=== PATIENT | male | born 1940 | race American Indian/Alaskan Native ===

== ENCOUNTER 2018-03-25 19:37 | Inpatient (IN) | payer MEDICARE ==
--- NOTE | 2018-03-25 20:34 | C.PDOC ---
History Of Present Illness 78 year old male presents to the ER with a complaint of lower abdominal pain and constipation, last bowel movement was 10 days ago. Denies nausea or vomiting. Chief Complaint (Nursing): Abdominal Pain History Per: Patient History/Exam Limitations: no limitations Onset/Duration Of Symptoms: Days Current Symptoms Are (Timing): Still Present Location Of Pain/Discomfort: RUQ, LUQ Associated Symptoms: Constipation. denies: Fever, Chills Exacerbating Factors: None Alleviating Factors: None Recent travel outside of the [place]: No Past Medical History Reviewed: Historical Data, Nursing Documentation, Vital Signs Vital Signs: Last Vital Signs Temp 99.2 F 03/25/18 23:01 Pulse 74 03/25/18 23:01 Resp 16 03/25/18 23:01 BP 128/81 03/25/18 23:01 Pulse Ox 96 03/25/18 23:01 - Medical History PMH: Arthritis (osteo), HTN - [facility] COLONOSCOPY (09/20/02) INJECT/INFUSE NEC (01/06/06) Family History: States: Unknown Family Hx - Social History Hx Alcohol Use: No Hx Substance Use: No - Immunization History Hx Tetanus Toxoid Vaccination: No Hx Influenza Vaccination: Yes Hx Pneumococcal Vaccination: Yes Review Of Systems Constitutional: Negative for: Fever, Chills Cardiovascular: Negative for: Chest Pain, Palpitations Respiratory: Negative for: Cough, Shortness of Breath Gastrointestinal: Positive for: Abdominal Pain, Constipation Physical Exam - Physical Exam Appears: Non-toxic Skin: Normal Color, Warm, Dry Head: Atraumatic, Normacephalic Eye(s): bilateral: Normal Inspection Oral Mucosa: Moist Chest: Symmetrical, No Tenderness Cardiovascular: Rhythm Regular Respiratory: Normal Breath Sounds, No Rales, No Rhonchi, No Wheezing Gastrointestinal/Abdominal: Soft, Distention (Slightly), No Guarding, No Rebound Rectal: Other (Stools in the vault) Neurological/Psych: Oriented x3, Normal Speech ED Course And Treatment - Laboratory Results Result Diagrams: 03/26/18 00:52 03/26/18 00:52 O2 Sat by Pulse Oximetry: 95 (Room air) Pulse Ox Interpretation: Normal Progress Note: Fleet enema administered. Disposition Discussed With : Viki Olmedo Doctor Will See Patient In The: Hospital Counseled Patient/Family Regarding: Diagnosis - Disposition Disposition: HOSPITALIZED Disposition Time: 01:25 Condition: STABLE Forms: [facility] (American) - POA Present On Arrival: None - Clinical Impression Clinical Impression: Abdominal pain, Proctitis, Constipation - Scribe Statement The provider has reviewed the documentation as recorded by the Scribrosa Perez All medical record entries made by the Loryibrosa were at my direction and personally dictated by me. I have reviewed the chart and agree that the record accurately reflects my personal performance of the history, physical exam, medical decision making, and the department course for this patient. I have also personally directed, reviewed, and agree with the discharge instructions and disposition.
--- NOTE | 2018-03-25 23:58 | CT ---
EXAM: CT Abdomen and Pelvis Without Intravenous Contrast EXAM DATE/TIME: 03/25/2018 10:04 PM CLINICAL HISTORY: 78 years old, male; Pain and signs and symptoms; Constipation; Abdominal pain; Generalized TECHNIQUE: Axial computed tomography images of the abdomen and pelvis without intravenous contrast. All CT scans at this facility use one or more dose reduction techniques, viz.: automated exposure control; ma/kV adjustment per patient size (including targeted exams where dose is matched to indication; i.e. head); or iterative reconstruction technique. Coronal and sagittal reformatted images were created and reviewed. COMPARISON: Prior CT abdomen and pelvis of 2016-12-10 FINDINGS: LUNG BASES: Again seen in the right lung base are findings suspicious for partial collapse of the right lower lobe. There is a focal area of dense consolidation again seen, associated with mild volume loss. ABDOMEN: LIVER: No acute abnormality of the liver identified. GALLBLADDER AND BILE DUCTS: No CT evidence of acute cholecystitis. No evidence of significant biliary ductal dilatation. PANCREAS: No CT evidence of acute pancreatitis. SPLEEN: No acute abnormality of the spleen identified. ADRENALS: No acute abnormality of the adrenal glands identified. KIDNEYS AND URETERS: Low density lesions in the kidneys bilaterally, most likely representing cysts. Particular note is made of a large, exophytic right renal cyst, which does not appear significantly complex by CT. No evidence of hydroureteronephrosis. STOMACH AND BOWEL: Rectum is stool-filled and is moderately dilated. Its wall is thickened. There is a small amount of nearby free fluid, in the presacral region. Findings are highly suspicious for stercoral proctitis. The remainder of the colon is filled with stool and air, but there is no evidence of a diffuse colonic obstruction. Otherwise, no significant abnormality of the bowel is identified. No acute abnormality of the stomach or duodenum identified. No evidence of a high grade small bowel obstruction. PELVIS: APPENDIX: Normal appendix is not seen, however, there are no significant inflammatory changes visualized in the expected location of the appendix to suggest appendicitis. Recommend clinical correlation. BLADDER: No acute abnormality of the bladder identified. REPRODUCTIVE: Enlarged prostate gland, which indents the base of the bladder. ABDOMEN and PELVIS: INTRAPERITONEAL SPACE: No evidence of free air. No significant free fluid. BONES/JOINTS: No acute fractures or other acute bony abnormality noted. SOFT TISSUES: No acute abnormality of the visualized soft tissues is seen. VASCULATURE: No evidence of abdominal aortic aneurysm. No evidence of periaortic hemorrhage. LYMPH NODES: No evidence of diffuse lymphadenopathy. IMPRESSION: - Findings highly suspicious for stercoral proctitis. - Otherwise, no evidence of significant acute process. 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 - See above for remaining findings.
[2018-03-26 00:47] LABS: SQUAMOUS EPITHIAL 1 /hpf (0-5); URINE BILIRUBIN NEGATIVE (NEGATIVE); URINE BLOOD 1+ (NEGATIVE); URINE CLARITY Clear (Clear); URINE COLOR Yellow (YELLOW); URINE GLUCOSE (UA) NORMAL (Normal); URINE HYALINE CAST 0-2 /lpf (0-2); URINE LEUKOCYTE ESTERASE NEG Leu/uL (Negative); URINE PROTEIN NEGATIVE (NEGATIVE)
[2018-03-26 00:55] LABS: BASO # 0.1 K/uL (0.0-0.2); BASO % 0.9 % (0.0-2.0); EOS # 0.2 K/uL (0.0-0.7); HEMOGLOBIN 15.5 g/dL (12.0-18.0); LYMPH # 1.6 K/uL (1.0-4.3); LYMPH % 20.9 % (20.0-40.0); MEAN CELL VOLUME 88.2 fL (80.0-94.0); MEAN CORPUSCULAR HEMOGLOBIN 30.3 pg (27.0-31.0); MEAN CORPUSCULAR HGB CONC 34.3 g/dL (33.0-37.0); MEAN PLATELET VOLUME 7.9 fL (7.2-11.7); MONO # 0.6 K/uL (0.0-0.8); MONO % 7.6 % (0.0-10.0); NEUT # 5.3 K/uL (1.8-7.0); NEUT % 68.6 % (50.0-75.0); RBC 5.11 Mil/uL (4.40-5.90); WHITE BLOOD COUNT 7.7 K/uL (4.8-10.8)
[2018-03-26 01:08] LABS: ALBUMIN 4.3 g/dL (3.5-5.0); ALT/SGPT 45 U/L (21-72); AST/SGOT 43 U/L (17-59); BLOOD UREA NITROGEN 15 mg/dL (9-20); CALCIUM 9.9 mg/dl (8.6-10.4); GFR AFRICAN-AMERICAN > 60; GFR NON-AFRICAN AMERICAN > 60; LIPASE 184 U/L (23-300)
[2018-03-26] MEDS ORDERED: Sodium Chloride 0.9% 1,000 ML IV ONE (01:17)
[2018-03-26] MEDS ORDERED: Ciprofloxacin 400mg/200ml D5W 400 MG/200 ML BAG IVPB STA (01:18)
[2018-03-26] MEDS ORDERED: Sodium Chloride 0.9% 1,000 ML ONE (01:43)
[2018-03-26] MEDS ORDERED: Ciprofloxacin 400mg/200ml D5W 400 MG/200 ML BAG IVPB ONE (01:43)
[2018-03-26] MEDS: metroNIDAZOLE IV 500 mg/100 ml 500 MG/100 ML BAG IVPB SCH ×3 (05:30→21:41)
--- NOTE | 2018-03-26 07:28 | CP.PCM.PN ---
Subjective - Date & Time of Evaluation Date of Evaluation: 03/26/18 Time of Evaluation: 07:28 - Subjective Subjective: 78 year old male with past medical history of hypertension, polymyositis, and left leg DVT presents with lower abdominal pain and rectal tenesmus. Patient states the abdominal pain started about 1 week ago and it located with bilateral lower abdominal region. He describes the pain as tightness and cramping in quality. He mention his last normal bowel movement was 10 days ago and since then he has been having rectal tenesmus daily. Yesterday, patient's abdominal pain became worse and he started noticed fecal matter started to leak out of his anus which prompted him to come to the ED. He denies of seeing blood in the stool. He further denies having fever, chills, headache, shortness of breath, chest pain, nausea, vomiting, or urinary symptoms. PMHx: hypertension, polymyositis, and left leg DVT (01/2017 been on Xarelto since) PSHx: Denies Allergy: NKDA Social: denies tobacco, alcohol, or other drug use Family Hx: non contributory Home meds: azathioprine, valsartan, HCTZ, xarelto, brimonidine Objective - Vital Signs/Intake and Output Vital Signs (last 24 hours): Temp Pulse Resp BP Pulse Ox 98.7 F 74 20 119/75 95 03/26/18 03:20 03/26/18 03:20 03/26/18 03:20 03/26/18 03:20 03/26/18 03:20 Intake and Output: 03/26/18 03/26/18 06:59 18:59 Intake Total 650 Output Total 200 Balance 450 - Medications Medications: Current Medications Azathioprine (Imuran) 50 mg PO BID [facility] Home Med (Bimatoprost [Lumigan]) 2.5 ml OP DAILY [facility] Home Med (Brimonidine Tartrate/Timolol [Combigan 0.2%-0.5% Eye Drops]) 1 drop LEFTEYE DAILY JADE Sodium Chloride (Sodium Chloride 0.9%) 1,000 mls @ 100 mls/hr IV .Q10H ONE Stop: 03/26/18 11:16 Last Admin: 03/26/18 01:48 Dose: 100 mls/hr Ciprofloxacin (Cipro 400mg/200ml Dsw) 400 mg in 200 mls @ 133 mls/hr IVPB Q12H [facility] PRN Reason: Protocol Metronidazole (Flagyl) 500 mg in 100 mls @ 100 mls/hr IVPB Q8 [facility] PRN Reason: Protocol Last Admin: 03/26/18 05:30 Dose: 100 mls/hr Ketorolac Tromethamine (Toradol) 30 mg IVP STAT PRN PRN Reason: Pain, moderate (4-7) Losartan Potassium (Cozaar) 100 mg PO DAILY [facility] Prednisone (Prednisone Tab) 5 mg PO DAILY JADE Rivaroxaban (Xarelto) 20 mg PO DAILY JADE - Labs Labs: 03/26/18 00:52 03/26/18 00:52 - Additional Findings Additional findings: - Constitutional Appears: Non-toxic, No Acute Distress, Chronically Ill - Head Exam Head Exam: NORMAL INSPECTION, NORMOCEPHALIC - Eye Exam Eye Exam: EOMI, PERRLA - ENT Exam ENT Exam: Mucous Membranes Moist - Neck Exam Neck Exam: Normal Inspection - Respiratory Exam Respiratory Exam: Clear to Ausculation Bilateral, NORMAL BREATHING PATTERN - Cardiovascular Exam Cardiovascular Exam: REGULAR RHYTHM, +S1, +S2 - GI/Abdominal Exam GI & Abdominal Exam: Bilateral lower quadrant tenderness, Distended, Soft, Normal Bowel Sounds - Extremities Exam Extremities Exam: Normal Inspection. absent: Pedal Edema, Tenderness - Back Exam Back Exam: absent: CVA tenderness (L), CVA tenderness (R) - Neurological Exam Neurological Exam: Alert, Awake, Oriented x3 - Psychiatric Exam Psychiatric exam: Normal Affect, Normal Mood - Skin Skin Exam: Normal Color, Warm Assessment and Plan - Assessment and Plan (Free Text) Assessment: Proctitis -CT abdomen shows high suspicion for stercoral proctitis -Stool occult blood negative -Ciprofloxacin 400mg Q12h (start 03/26) -Metronidazole 500mg Q8h (start 03/26) -Follow up blood and urine cultures -GI consulted, Dr. Alvaro ogden appreciated -Toradol 30mg prn for pain -Liquid diet Polymyositis -Azathioprine 50mg BID -Prednisone 5mg Hx of Left legt DVT -Xarelto 20mg daily HTN -Losartan 100mg Glaucoma -Bimatoprost 2.5ml op -Brimonidine 1 drop left eye daily Prophylactic measures -Pepcid -SCD Case discussed with attending physician Dr. Olmedo
[2018-03-26] MEDS ORDERED: Home Med 1 UNIT (Brimonidine Tartrate/Timolol [Combigan 0.2%-0.5% Eye Drops] 1 DROP) LEFTEYE SCH (10:00)
[2018-03-26] MEDS ORDERED: BIMATOPROST OP SCH (10:00)
[2018-03-26] MEDS: Ciprofloxacin 400mg/200ml D5W 400 MG/200 ML BAG IVPB SCH (14:20)
[2018-03-26] MEDS ORDERED: Peg-Electrolyte Oral Soln 4L (Golytely) PO ONE (15:30)
[2018-03-26] MEDS ORDERED: Bisacodyl 5mg EC Tab PO ONE (17:00)
[2018-03-26] MEDS: Latanoprost 2.5 ml Opht Soln OS SCH (21:47)
[2018-03-27] MEDS: Ciprofloxacin 400mg/200ml D5W 400 MG/200 ML BAG IVPB SCH ×2 (02:41→14:04)
[2018-03-27] MEDS: metroNIDAZOLE IV 500 mg/100 ml 500 MG/100 ML BAG IVPB SCH ×3 (05:31→21:57)
--- NOTE | 2018-03-27 05:59 | HP ---
HISTORY OF PRESENT ILLNESS: A 78-year-old male admitted to the hospital with complaint of abdominal pain, leakage from the anal canal. The patient came to the ER, advised admission. PHYSICAL EXAMINATION: GENERAL: The patient is awake, alert, and oriented. VITAL SIGNS: Temperature 98, pulse 90. HEENT: Within normal limits. NECK: Supple. CHEST: Symmetrical. HEART: Regular. ABDOMEN: Soft. EXTREMITIES: No edema. IMPRESSION: The patient suffers from proctitis. The patient to get bedrest, supportive care, IV antibiotic. Viki Olmedo MD
[2018-03-27 07:46] LABS: BASO % 0.5 % (0.0-2.0); EOS # 0.2 K/uL (0.0-0.7); EOS % 3.2 % (0.0-4.0); LYMPH # 1.6 K/uL (1.0-4.3); LYMPH % 26.7 % (20.0-40.0); MEAN CORPUSCULAR HEMOGLOBIN 29.9 pg (27.0-31.0); MEAN CORPUSCULAR HGB CONC 33.9 g/dL (33.0-37.0); MEAN PLATELET VOLUME 7.9 fL (7.2-11.7); MONO # 0.8 K/uL (0.0-0.8); MONO % 13.2 % (0.0-10.0); NEUT # 3.4 K/uL (1.8-7.0); NEUT % 56.4 % (50.0-75.0); NRBC % 0.1 % (0.0-2.0); RBC 4.08 Mil/uL (4.40-5.90); RED CELL DISTRIBUTION WIDTH 13.9 % (11.5-14.5)
[2018-03-27 07:48] LABS: ALB/GLOB RATIO 1.2 (1.0-2.1); ALBUMIN 3.5 g/dL (3.5-5.0); ALT/SGPT 33 U/L (21-72); AST/SGOT 29 U/L (17-59); BLOOD UREA NITROGEN 11 mg/dL (9-20); CALCIUM 8.1 mg/dl (8.6-10.4); GFR AFRICAN-AMERICAN > 60; GFR NON-AFRICAN AMERICAN > 60
[2018-03-27 07:50] LABS: HEMOGLOBIN 12.2 g/dL (12.0-18.0); INR 1.5
[2018-03-27 07:54] LABS: PROTHROMBIN TIME 15.9 SECONDS (9.7-12.2)
--- NOTE | 2018-03-27 08:55 | CP.PCM.PN ---
Subjective - Date & Time of Evaluation Date of Evaluation: 03/27/18 Time of Evaluation: 08:55 - Subjective Subjective: Progress Note for Dr. Olmedo Patient seen and examined at bedside. Patient was made NPO after midnight in preparation for colonoscopy today. Patient complains of abdominal pain and toradol was given. Patient still complains of stool leaking. He denies having fever, chills, headache, shortness of breath, chest pain, nausea, vomiting, or urinary symptoms. Objective - Vital Signs/Intake and Output Vital Signs (last 24 hours): Temp Pulse Resp BP Pulse Ox 98.5 F 80 20 121/77 96 03/27/18 08:54 03/27/18 08:54 03/27/18 08:54 03/27/18 08:54 03/27/18 08:54 Intake and Output: 03/27/18 03/27/18 06:59 18:59 Intake Total 740 300 Balance 740 300 - Medications Medications: Current Medications Azathioprine (Imuran) 50 mg PO BID [facility] Last Admin: 03/26/18 17:57 Dose: 50 mg Brimonidine Tartrate (Alphagan 0.2% Opht) 0 ml OS DAILY@1200 [facility] Famotidine (Pepcid) 20 mg PO DAILY [facility] Ciprofloxacin (Cipro 400mg/200ml Dsw) 400 mg in 200 mls @ 133 mls/hr IVPB Q12H [facility]ADE PRN Reason: Protocol Last Admin: 03/27/18 02:41 Dose: 133 mls/hr Metronidazole (Flagyl) 500 mg in 100 mls @ 100 mls/hr IVPB Q8 [facility] PRN Reason: Protocol Last Admin: 03/27/18 05:31 Dose: 100 mls/hr Latanoprost (Xalatan Opht) 0 ml OS HS [facility] Last Admin: 03/26/18 21:47 Dose: 2.5 ml Losartan Potassium (Cozaar) 100 mg PO DAILY [facility] Last Admin: 03/26/18 10:20 Dose: 100 mg Metoclopramide HCl (Reglan) 5 mg IVP Q6H [facility] Last Admin: 03/27/18 08:47 Dose: 5 mg Prednisone (Prednisone Tab) 5 mg PO DAILY [facility] Last Admin: 03/26/18 10:20 Dose: 5 mg Rivaroxaban (Xarelto) 20 mg PO DAILY [facility] Last Admin: 03/26/18 10:20 Dose: 20 mg Timolol Maleate (Timoptic 0.5% Ophth Soln) 0 drop OS DAILY [facility] - Labs Labs: 03/27/18 07:25 03/27/18 07:25 PT 15.9 SECONDS (9.7-12.2) H 03/27/18 07:25 INR 1.5 03/27/18 07:25 APTT 35 SECONDS (21-34) H 03/27/18 07:25 - Additional Findings Additional findings: - Constitutional Appears: Non-toxic, No Acute Distress, Chronically Ill - Head Exam Head Exam: NORMAL INSPECTION, NORMOCEPHALIC - Eye Exam Eye Exam: EOMI, PERRLA - ENT Exam ENT Exam: Mucous Membranes Moist - Neck Exam Neck Exam: Normal Inspection - Respiratory Exam Respiratory Exam: Clear to Ausculation Bilateral, NORMAL BREATHING PATTERN - Cardiovascular Exam Cardiovascular Exam: REGULAR RHYTHM, +S1, +S2 - GI/Abdominal Exam GI & Abdominal Exam: Bilateral lower quadrant tenderness, Distended, Soft, Normal Bowel Sounds - Extremities Exam Extremities Exam: Normal Inspection. absent: Pedal Edema, Tenderness - Back Exam Back Exam: absent: CVA tenderness (L), CVA tenderness (R) - Neurological Exam Neurological Exam: Alert, Awake, Oriented x3 - Psychiatric Exam Psychiatric exam: Normal Affect, Normal Mood - Skin Skin Exam: Normal Color, Warm Assessment and Plan - Assessment and Plan (Free Text) Assessment: Proctitis -CT abdomen shows high suspicion for stercoral proctitis -Stool occult blood negative -Ciprofloxacin 400mg Q12h (start 03/26) -Metronidazole 500mg Q8h (start 03/26) -Follow up blood and urine cultures -GI consulted, Dr. John help appreciated -Toradol 30mg prn for pain -Liquid diet -Colonoscopy shows congested mucosa in the descending colon. Colonic spasm. Polymyositis -Azathioprine 50mg BID -Prednisone 5mg Hx of Left legt DVT -Xarelto 20mg daily HTN -Losartan 100mg Glaucoma -Bimatoprost 2.5ml op -Brimonidine 1 drop left eye daily Hemorrhoids -Analpram BID Hypokalemia -Supplement as needed -Follow up AM labs Prophylactic measures -Pepcid -SCD Case discussed with attending physician Dr. Olmedo
[2018-03-27] MEDS ORDERED: Propofol 10 mg/ml Inj (20 ML) ONE (09:20)
[2018-03-27] MEDS: Brimonidine 0.2% Opth Sol (5ml) OS SCH (12:04)
[2018-03-27] MEDS: Hydrocortisone 2.5% Rectal Cream(30 gm) PR SCH (17:58)
[2018-03-27] MEDS: Latanoprost 2.5 ml Opht Soln OS SCH (21:59)
[2018-03-28] MEDS: Ciprofloxacin 400mg/200ml D5W 400 MG/200 ML BAG IVPB SCH ×2 (02:42→20:15)
[2018-03-28] MEDS: metroNIDAZOLE IV 500 mg/100 ml 500 MG/100 ML BAG IVPB SCH ×3 (05:09→22:01)
[2018-03-28 07:33] LABS: BASO % 0.5 % (0.0-2.0); EOS # 0.3 K/uL (0.0-0.7); EOS % 5.2 % (0.0-4.0); HEMOGLOBIN 11.2 g/dL (12.0-18.0); LYMPH # 1.3 K/uL (1.0-4.3); LYMPH % 27.8 % (20.0-40.0); MEAN CELL VOLUME 87.7 fL (80.0-94.0); MEAN CORPUSCULAR HEMOGLOBIN 30.2 pg (27.0-31.0); MEAN CORPUSCULAR HGB CONC 34.4 g/dL (33.0-37.0); MEAN PLATELET VOLUME 7.7 fL (7.2-11.7); MONO # 0.6 K/uL (0.0-0.8); MONO % 12.5 % (0.0-10.0); NEUT # 2.6 K/uL (1.8-7.0); RBC 3.72 Mil/uL (4.40-5.90); RED CELL DISTRIBUTION WIDTH 14.2 % (11.5-14.5); WHITE BLOOD COUNT 4.8 K/uL (4.8-10.8)
[2018-03-28 08:02] LABS: ALT/SGPT 36 U/L (21-72); AST/SGOT 34 U/L (17-59); BLOOD UREA NITROGEN 8 mg/dL (9-20); CALCIUM 8.2 mg/dl (8.6-10.4); GFR AFRICAN-AMERICAN > 60; GFR NON-AFRICAN AMERICAN > 60
[2018-03-28] MEDS: Hydrocortisone 2.5% Rectal Cream(30 gm) PR SCH ×2 (09:17→17:41)
[2018-03-28] MEDS ORDERED: Bisacodyl 5mg EC Tab PO ONE (10:33)
[2018-03-28] MEDS: Lactated Ringer's 1,000 ML IV SCH (11:05)
[2018-03-28] MEDS: Brimonidine 0.2% Opth Sol (5ml) OS SCH (11:19)
[2018-03-28] MEDS ORDERED: Potassium Chloride 20 mEq/15 ml LIQ UD PO ONE (11:30)
--- NOTE | 2018-03-28 14:14 | PN ---
DATE: 03/28/2018 LOCATION: 371, bed A. SUBJECTIVE: This is a 78-year-old male seen and examined in rounds post colonoscopy yesterday, appeared to be awake, alert, and oriented with much less reported abdominal pain or abdominal discomfort and distention. No reported active bleeding, chest pain, significant shortness of breath. The entire chart is reviewed including but not limited to the most recent lab and radiology study results, current and the previous medication list, current and the previous medical events, with today's labs showing hemoglobin 11.2, hematocrit 32.7, with normal white blood cells and platelet count. PT and PTT were mildly elevated with reported low potassium. The patient has no reported hematemesis, but nausea and dyspepsia. BUN is 8, creatinine 0.25, calcium 8.2, with low albumin 3, with normal lipase levels. PHYSICAL EXAMINATION: GENERAL/VITAL SIGNS: A 78-year-old male, appeared to be awake, alert, and oriented, afebrile, tolerating oral intake well with heart rate of 74, respiratory rate 20 to 22, blood pressure 126/88. HEENT: Showed pale, dry oral mucous membranes, nonicteric sclerae. LUNGS: Few scattered crepitations, decreased air entry at bases. HEART: Positive S1 and S2. ABDOMEN: Soft, with mild distention. No mass or organomegaly. No rebound tenderness or guarding except left lower quadrant mild tenderness. RECTAL: No stool, was empty. EXTREMITIES: No significant clubbing, cyanosis, or edema. IMPRESSION: 1. Anemia. 2. Abnormal CAT scan of the abdomen and pelvis. 3. Left-sided colitis, biopsies done, awaiting pathology report, with internal hemorrhoids and evidence of spastic colon. 4. Known history of hypertension. 5. Electrolyte imbalance with hypokalemia, on potassium chloride. 6. Re-exacerbation of peptic ulcer disease. Further recommendations to follow. Estela Medina MD
[2018-03-28] MEDS ORDERED: Ciprofloxacin 400mg/200ml D5W 400 MG/200 ML BAG IVPB SCH (18:00)
[2018-03-28] MEDS: Latanoprost 2.5 ml Opht Soln OS SCH (22:01)
[2018-03-29] MEDS: metroNIDAZOLE IV 500 mg/100 ml 500 MG/100 ML BAG IVPB SCH ×3 (05:14→21:28)
[2018-03-29] MEDS: Ciprofloxacin 400mg/200ml D5W 400 MG/200 ML BAG IVPB SCH ×2 (05:15→17:59)
[2018-03-29 08:08] LABS: BASO % 0.5 % (0.0-2.0); EOS # 0.1 K/uL (0.0-0.7); EOS % 2.2 % (0.0-4.0); HEMOGLOBIN 11.2 g/dL (12.0-18.0); LYMPH # 1.6 K/uL (1.0-4.3); LYMPH % 26.6 % (20.0-40.0); MEAN CELL VOLUME 87.9 fL (80.0-94.0); MEAN CORPUSCULAR HEMOGLOBIN 30.2 pg (27.0-31.0); MEAN CORPUSCULAR HGB CONC 34.4 g/dL (33.0-37.0); MEAN PLATELET VOLUME 8.3 fL (7.2-11.7); MONO # 0.7 K/uL (0.0-0.8); MONO % 11.6 % (0.0-10.0); NEUT # 3.5 K/uL (1.8-7.0); NEUT % 59.1 % (50.0-75.0); NRBC % 0.1 % (0.0-2.0); RBC 3.7 Mil/uL (4.40-5.90); RED CELL DISTRIBUTION WIDTH 13.6 % (11.5-14.5)
[2018-03-29 08:20] LABS: ALB/GLOB RATIO 1.1 (1.0-2.1); ALBUMIN 3.5 g/dL (3.5-5.0); ALT/SGPT 30 U/L (21-72); AST/SGOT 29 U/L (17-59); BLOOD UREA NITROGEN 14 mg/dL (9-20); CALCIUM 8.2 mg/dl (8.6-10.4); GFR AFRICAN-AMERICAN > 60; GFR NON-AFRICAN AMERICAN > 60
[2018-03-29] MEDS: Hydrocortisone 2.5% Rectal Cream(30 gm) PR SCH ×2 (09:40→17:58)
[2018-03-29] MEDS: Brimonidine 0.2% Opth Sol (5ml) OS SCH (12:36)
[2018-03-29] MEDS: Latanoprost 2.5 ml Opht Soln OS SCH (21:20)
[2018-03-30] MEDS: Ciprofloxacin 400mg/200ml D5W 400 MG/200 ML BAG IVPB SCH ×2 (05:00→17:51)
[2018-03-30] MEDS: metroNIDAZOLE IV 500 mg/100 ml 500 MG/100 ML BAG IVPB SCH ×3 (06:19→21:24)
[2018-03-30 08:05] LABS: BASO # 0.1 K/uL (0.0-0.2); EOS # 0.2 K/uL (0.0-0.7); EOS % 3.5 % (0.0-4.0); HEMOGLOBIN 11.8 g/dL (12.0-18.0); LYMPH # 1.6 K/uL (1.0-4.3); LYMPH % 31.8 % (20.0-40.0); MEAN CELL VOLUME 88.6 fL (80.0-94.0); MEAN CORPUSCULAR HEMOGLOBIN 30.6 pg (27.0-31.0); MEAN CORPUSCULAR HGB CONC 34.6 g/dL (33.0-37.0); MEAN PLATELET VOLUME 7.8 fL (7.2-11.7); MONO # 0.6 K/uL (0.0-0.8); MONO % 12.4 % (0.0-10.0); NEUT # 2.6 K/uL (1.8-7.0); NEUT % 51.3 % (50.0-75.0); RBC 3.85 Mil/uL (4.40-5.90); RED CELL DISTRIBUTION WIDTH 13.8 % (11.5-14.5); WHITE BLOOD COUNT 5.1 K/uL (4.8-10.8)
[2018-03-30 08:34] LABS: ALBUMIN 3.1 g/dL (3.5-5.0); ALT/SGPT 35 U/L (21-72); AST/SGOT 32 U/L (17-59); BLOOD UREA NITROGEN 10 mg/dL (9-20); CALCIUM 8.5 mg/dl (8.6-10.4); GFR AFRICAN-AMERICAN > 60; GFR NON-AFRICAN AMERICAN > 60
[2018-03-30] MEDS ORDERED: Phytonadione 10 mg/ml Inj (Adult) SC ONE (08:45)
[2018-03-30] MEDS: Lactated Ringer's 1,000 ML IV SCH (10:00)
[2018-03-30] MEDS: Hydrocortisone 2.5% Rectal Cream(30 gm) PR SCH ×2 (10:54→17:46)
[2018-03-30] MEDS: Brimonidine 0.2% Opth Sol (5ml) OS SCH (12:29)
--- NOTE | 2018-03-30 13:49 | PN ---
DATE: LOCATION: 371, bed A. SUBJECTIVE: A 78-year-old male seen and examined in rounds without significant clinical changes, but intermittent period of abdominal pain on and off with postprandial abdominal distention. No chest pain, palpitation reported this morning, but mild occasional shortness of breath. The entire chart is reviewed including, but not limited to the most recent lab and radiology study results, current and previous medication list, current and the previous medical events. Episodes of nausea and dyspepsia acquired during my physical examination. The most recent lab results showed drop in hemoglobin to 11.2, hematocrit 32.5. Today's lab results still pending. PHYSICAL EXAMINATION: GENERAL: A 78-year-old male. VITAL SIGNS: Afebrile with pulse of 66, respiratory rate 18-20, blood pressure of 132/74. HEENT: Showed pale, dry oral mucous membrane. Nonicteric sclerae. LUNGS: Few scattered crepitation. Decreased air entry at bases. HEART: Positive S1 and S2. ABDOMEN: Soft. Bowel sounds are present with generalized tenderness, but mainly in the midepigastric and midabdominal line. No mass or organomegaly. No rebound tenderness or guarding. RECTAL: Examination the patient refused. EXTREMITIES: Without significant clubbing, cyanosis or edema. NEUROLOGIC: No reported new neurological deficits, sensory or motor. No reported new focal deficits. IMPRESSION: 1. Re-exacerbation of peptic ulcer disease. 2. Anemia, to rule out upper GI blood loss. 3. Abnormal CAT scan of the abdomen and pelvis. 4. Left-sided colitis with internal hemorrhoids as well as evidence of spastic colon by recent colonoscopy. 5. Electrolyte imbalance, corrected. 6. Known history of hypertension. SUGGESTIONS: 1. Agree with your plan. 2. Carafate p.o. 3. Vitamin K subcu due to the patient's coagulopathy. 4. Further recommendation to follow. Estela Medina MD
[2018-03-30] MEDS: Latanoprost 2.5 ml Opht Soln OS SCH (21:24)
--- NOTE | 2018-03-31 05:12 | CON ---
DATE: 03/26/[address] Medina to Dr. Viki Olmedo. I was called for GI consultation by the admitting MD. The patient is seen and fully examined on 03/26/2018, as requested by the admitting medical staff. A short handwritten consultation sheet left in the chart. The entire chart is reviewed including and not limited to the most recent lab and radiology study results, current and previous medication lists, current and previous medical events, allergy to medication list, as well as all the available current and previous medical records. Case discussed at length with the staff before and immediately after my GI consultation on 03/26/2018. HISTORY OF PRESENT ILLNESS: This is a 78-year-old male who was admitted to the hospital with a main complaint of severe crampy lower abdominal pain associated with periods of severe constipation, last of which was about 10 days prior to this admission as per the patient's statement, with dyspepsia and nausea on and off, but no vomiting and no reported active bleeding. No chest pain, palpitation, or significant complaint of shortness of breath. No chills or fever as per the patient's statement. PAST MEDICAL HISTORY: Including mainly, 1. Hypertension. 2. Peptic ulcer disease. 3. Osteoarthritis. 4. Last colonoscopy as reported was 09/2002. FAMILY HISTORY: Unknown. SOCIAL HISTORY: Denied any recent history of cigarette smoking or alcohol intake. CURRENT MEDICATIONS: Medication list post admission was reviewed. ALLERGIES: ALLERGY TO MEDICATION LIST WAS REVIEWED. LABORATORY DATA AND IMAGING: After being admitted to the hospital, initial blood workup showed normal CBC with blood glucose level 126, CO2 content 35 indicative of respiratory alkalosis with creatinine of 0.5. CAT scan of the abdomen and pelvis; initial report was indicative of possible left-sided colitis. PHYSICAL EXAMINATION: GENERAL: A 78-year-old male appears to be awake, alert, oriented, complaining of midepigastric as well as mainly left lower quadrant abdominal pain as well as moderate right lower quadrant abdominal pain. VITAL SIGNS: The patient is afebrile with pulse of 70, respiratory rate 18 to 20, with blood pressure of 130/74. HEENT: Showed pale, dry oral mucoid membrane. Nonicteric sclerae. LUNGS: Few scattered crepitation. Decreased air entry at bases bilaterally. HEART: Positive S1 and S2. ABDOMEN: Soft with generalized tenderness, but mainly in the midepigastric and left lower quadrant as well as the right lower quadrant. No mass or organomegaly. No rebound tenderness or guarding. Bowel sounds are hypoactive. EXTREMITIES: Lower extremities: Mild edematous changes. No clubbing or cyanosis. NEUROLOGIC: No reported new neurological deficits, sensory or motor. No reported new focal deficits. Peripheral pulses are present bilaterally, but decreased. IMPRESSION: 1. Colitis by radiology study results with severe constipation, to rule out occult lower gastrointestinal tract neoplastic lesion. 2. Re-exacerbation of peptic ulcer disease, to rule out gastric versus duodenal ulcer. 3. Known history of hypertension with osteoarthritis. 4. Hyperglycemia as a new episode. 5. Respiratory alkalosis of unclear etiology. SUGGESTIONS: 1. Agree with your plan. 2. Magnesium citrate 60 mL p.o. twice a day for now. 3. Full liquid diet. 4. Cancer markers including CEA and PSA. 5. Colonoscopy at a.m. after strong and adequate preparation. 6. Peripheral hyperalimentation. 7. Correct any underlying electrolyte imbalance. 8. The patient may need upper endoscopy also when he is more stable clinically pending on the outcome of the colonoscopy results. 9. Proton pump inhibitors. 10. Bentyl 10 mg 1 tablet p.o. b.i.d. 11. Further recommendation to follow. Thank you for letting me participate in your patient's case management. We will follow up closely with you. Estela Medina MD cc: The patient's chart.
[2018-03-31] MEDS: metroNIDAZOLE IV 500 mg/100 ml 500 MG/100 ML BAG IVPB SCH (05:51)
[2018-03-31] MEDS: Ciprofloxacin 400mg/200ml D5W 400 MG/200 ML BAG IVPB SCH ×2 (07:00→17:56)
--- NOTE | 2018-03-31 07:34 | PN ---
DATE: 03/29/2018 LOCATION: 371, bed A. SUBJECTIVE: This is a 78-year-old male seen and examined in rounds without significant clinical changes or reported active bleeding with intermittent periods of abdominal pain on and off and mild nausea. No reported active bleeding, significant shortness of breath, chest pain, or palpitations; somewhat tolerating oral intake. Today's lab results showed hemoglobin of 11.2, with hematocrit of 32.5, decreased than before with creatinine 0.7, calcium 8.2, with normal liver function tests. Stool for occult blood reported to be negative. PHYSICAL EXAMINATION: GENERAL: A 78-year-old male. VITAL SIGNS: Afebrile, with stable vital signs, with respiratory rate 20 to 22, pulse of 72, and blood pressure of 136/78. HEENT: Showed pale, dry, oral mucous membranes, nonicteric sclerae. LUNGS: Few scattered crepitations, decreased air entry at bases. HEART: Positive S1 and S2. ABDOMEN: Soft, with mild generalized tenderness. No mass or organomegaly, but with mild distention with reported nausea and mild dyspepsia during my physical examination. EXTREMITIES: Without significant clubbing, cyanosis, or edema. NEUROLOGIC: No reported new neurological deficits, sensory or motor. No focal deficits. IMPRESSION: 1. Anemia. 2. Left-sided colitis with internal hemorrhoids and evidence of spastic colon. 3. Abnormal CAT scan of the abdomen and pelvis, please see official report. 4. Reported partial collapse of the right base lobe of uncertain etiology. 5. Known history of hypertension. 6. Recurrent nausea and dyspepsia of unclear etiology, to rule out gastric versus duodenal ulcer in the face of low hemoglobin and hematocrit. SUGGESTIONS: 1. Agree with your plan. 2. Close observation. 3. The patient is to be scheduled for upper endoscopy for full evaluation of the upper GI tract when he is more stable clinically. 4. Further recommendations to follow. Estela Medina MD
[2018-03-31 08:07] LABS: BASO % 0.5 % (0.0-2.0); EOS # 0.1 K/uL (0.0-0.7); EOS % 2.4 % (0.0-4.0); HEMOGLOBIN 11.3 g/dL (12.0-18.0); LYMPH # 1.8 K/uL (1.0-4.3); LYMPH % 28.9 % (20.0-40.0); MEAN CELL VOLUME 88.1 fL (80.0-94.0); MEAN CORPUSCULAR HEMOGLOBIN 30.2 pg (27.0-31.0); MEAN CORPUSCULAR HGB CONC 34.3 g/dL (33.0-37.0); MEAN PLATELET VOLUME 7.8 fL (7.2-11.7); MONO # 0.8 K/uL (0.0-0.8); MONO % 12.6 % (0.0-10.0); NEUT # 3.5 K/uL (1.8-7.0); NEUT % 55.6 % (50.0-75.0); NRBC % 0.1 % (0.0-2.0); RBC 3.75 Mil/uL (4.40-5.90); RED CELL DISTRIBUTION WIDTH 13.9 % (11.5-14.5); WHITE BLOOD COUNT 6.2 K/uL (4.8-10.8)
[2018-03-31 08:13] LABS: ALT/SGPT 34 U/L (21-72); AST/SGOT 26 U/L (17-59); BLOOD UREA NITROGEN 10 mg/dL (9-20); CALCIUM 8.2 mg/dl (8.6-10.4); GFR AFRICAN-AMERICAN > 60; GFR NON-AFRICAN AMERICAN > 60
--- NOTE | 2018-03-31 08:51 | PN ---
DATE: 03/29/2018 The patient on bedrest, supportive care, IV antibiotics. Still complaining of abdominal pain. Continue current treatment. Viki Olmedo MD
--- NOTE | 2018-03-31 08:55 | PN ---
DATE: 03/30/2018 The patient has increased abdominal pain. IV antibiotics. Difficulty walking. History of biopsy. The patient on Prednisone Viki Olmedo MD
--- NOTE | 2018-03-31 09:07 | CP.PCM.PN ---
Subjective - Date & Time of Evaluation Date of Evaluation: 03/31/18 Time of Evaluation: 08:00 - Subjective Subjective: PGY 2 medicine Progress Note for Dr. Olmedo: Patient seen and examined at bedside. States he is having some difficulty swallowing. He is NPO at this time for endoscopy today. He denies having fever , chills, headache, shortness of breath, chest pain, nausea, vomiting, or urinary symptoms. Objective - Vital Signs/Intake and Output Vital Signs (last 24 hours): Temp Pulse Resp BP Pulse Ox 98.5 F 68 20 158/82 H 95 03/31/18 07:34 03/31/18 07:34 03/31/18 07:34 03/31/18 07:34 03/31/18 07:34 Intake and Output: 03/31/18 03/31/18 06:59 18:59 Intake Total 400 450 Balance 400 450 - Medications Medications: Current Medications Azathioprine (Imuran) 50 mg PO BID [facility] Last Admin: 03/30/18 17:46 Dose: 50 mg Brimonidine Tartrate (Alphagan 0.2% Opht) 0 ml OS DAILY@1200 [facility] Last Admin: 03/30/18 12:29 Dose: 1 drop Famotidine (Pepcid) 20 mg PO DAILY [facility] Last Admin: 03/30/18 10:53 Dose: 20 mg Hydrocortisone (Anusol-Hc) 1 gm IA BID [facility] Last Admin: 03/30/18 17:46 Dose: 1 applic Ciprofloxacin (Cipro 400mg/200ml Dsw) 400 mg in 200 mls @ 133 mls/hr IVPB Q12H [facility] PRN Reason: Protocol Last Admin: 03/31/18 07:00 Dose: 133 mls/hr Latanoprost (Xalatan Opht) 0 ml OS HS [facility] Last Admin: 03/30/18 21:24 Dose: 1 ml Losartan Potassium (Cozaar) 100 mg PO DAILY [facility] Last Admin: 03/30/18 10:53 Dose: 100 mg Metoclopramide HCl (Reglan) 5 mg IVP Q6H [facility] Last Admin: 03/31/18 03:10 Dose: 5 mg Prednisone (Prednisone Tab) 5 mg PO DAILY [facility] Last Admin: 03/30/18 10:53 Dose: 5 mg Rivaroxaban (Xarelto) 20 mg PO DAILY [facility] Last Admin: 03/30/18 10:53 Dose: 20 mg Timolol Maleate (Timoptic 0.5% Ophth Soln) 0 drop OS DAILY [facility] Last Admin: 03/30/18 10:55 Dose: 1 drop - Labs Labs: 03/31/18 07:46 03/31/18 07:46 PT 15.9 SECONDS (9.7-12.2) H 03/27/18 07:25 INR 1.5 03/27/18 07:25 APTT 35 SECONDS (21-34) H 03/27/18 07:25 - Constitutional Appears: Non-toxic, No Acute Distress, Chronically Ill - Head Exam Head Exam: NORMAL INSPECTION - Eye Exam Eye Exam: EOMI Pupil Exam: NORMAL ACCOMODATION - ENT Exam ENT Exam: Mucous Membranes Moist - Respiratory Exam Respiratory Exam: Clear to Ausculation Bilateral, NORMAL BREATHING PATTERN. absent: Respiratory Distress - Cardiovascular Exam Cardiovascular Exam: REGULAR RHYTHM, +S1, +S2 - GI/Abdominal Exam GI & Abdominal Exam: Soft, Normal Bowel Sounds. 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 John help appreciated -Toradol 30mg prn for pain -Anusol 1gram IA BID - Reglan 5mg IBP Q6 [facility] -Liquid diet -Colonoscopy shows congested mucosa in the descending colon. Colonic spasm. Polymyositis -Azathioprine 50mg BID -Prednisone 5mg Hx of Left legt DVT -Xarelto 20mg daily HTN -Losartan 100mg PO daily Glaucoma -Bimatoprost 2.5ml op -Brimonidine 1 drop left eye daily Hemorrhoids -Analpram BID Hypokalemia -Supplement as needed -Follow up AM labs Prophylactic measures -Pepcid 20mg PO daily -SCD, on Xarelto All management per Dr. Olmedo.
[2018-03-31] MEDS ORDERED: Propofol 10 mg/ml Inj (20 ML) ONE (11:05)
[2018-03-31 16:33] VITALS: RESP 20
[2018-03-31] MEDS: Hydrocortisone 2.5% Rectal Cream(30 gm) PR SCH (17:55)
[2018-03-31] MEDS: Latanoprost 2.5 ml Opht Soln OS SCH (21:17)
[2018-04-01] MEDS: Ciprofloxacin 400mg/200ml D5W 400 MG/200 ML BAG IVPB SCH (05:40)
--- NOTE | 2018-04-01 07:18 | CP.PCM.PN ---
Subjective - Date & Time of Evaluation Date of Evaluation: 04/01/18 Time of Evaluation: 07:17 - Subjective Subjective: Progress Note for Dr. Olmedo's Service Patient seen and examined at bedside. He s/p EGD/Colonoscopy which were both completed yesterday. EGD reported showing grade B esophagitis and colonoscopy exhibited mild congestion. He states that he is well today and denies acute complaints. Pt states that he is feeling better. He is tolerating his diet. No bowel movements since Friday. Objective - Vital Signs/Intake and Output Vital Signs (last 24 hours): Temp Pulse Resp BP Pulse Ox 98.7 F 61 20 158/89 H 98 04/01/18 00:00 04/01/18 00:00 04/01/18 00:00 04/01/18 01:00 04/01/18 00:00 Intake and Output: 04/01/18 04/01/18 06:59 18:59 Intake Total 550 Balance 550 - Medications Medications: Current Medications Azathioprine (Imuran) 50 mg PO BID [facility] Last Admin: 03/31/18 17:55 Dose: 50 mg Brimonidine Tartrate (Alphagan 0.2% Opht) 0 ml OS DAILY@1200 [facility] Last Admin: 03/30/18 12:29 Dose: 1 drop Famotidine (Pepcid) 20 mg PO DAILY [facility] Last Admin: 03/30/18 10:53 Dose: 20 mg Hydrocortisone (Anusol-Hc) 1 gm AR BID [facility] Last Admin: 03/31/18 17:55 Dose: 1 applic Ciprofloxacin (Cipro 400mg/200ml Dsw) 400 mg in 200 mls @ 133 mls/hr IVPB Q12H [facility] PRN Reason: Protocol Last Admin: 04/01/18 05:40 Dose: 133 mls/hr Latanoprost (Xalatan Opht) 0 ml OS HS [facility] Last Admin: 03/31/18 21:17 Dose: 2.5 ml Losartan Potassium (Cozaar) 100 mg PO DAILY [facility] Last Admin: 03/30/18 10:53 Dose: 100 mg Metoclopramide HCl (Reglan) 5 mg IVP Q6H [facility] Last Admin: 04/01/18 02:29 Dose: Not Given Prednisone (Prednisone Tab) 5 mg PO DAILY [facility] Last Admin: 03/30/18 10:53 Dose: 5 mg Rivaroxaban (Xarelto) 20 mg PO DAILY [facility] Last Admin: 03/30/18 10:53 Dose: 20 mg Timolol Maleate (Timoptic 0.5% Ophth Soln) 0 drop OS DAILY [facility] Last Admin: 03/30/18 10:55 Dose: 1 drop - Labs Labs: 03/31/18 07:46 03/31/18 07:46 PT 15.9 SECONDS (9.7-12.2) H 03/27/18 07:25 INR 1.5 03/27/18 07:25 APTT 35 SECONDS (21-34) H 03/27/18 07:25 - Constitutional Appears: No Acute Distress - Head Exam Head Exam: ATRAUMATIC, NORMOCEPHALIC - ENT Exam ENT Exam: Mucous Membranes Moist - Respiratory Exam Respiratory Exam: Clear to Ausculation Bilateral, NORMAL BREATHING PATTERN - Cardiovascular Exam Cardiovascular Exam: REGULAR RHYTHM, +S1, +S2 - GI/Abdominal Exam GI & Abdominal Exam: Soft. 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 John help appreciated EGD- Grade B esophagitis, hiatal hernia Colonoscopy- mild congestion -Toradol 30mg prn for pain -Anusol 1gram AR BID - Reglan 5mg IBP Q6 [facility] -Liquid diet -Colonoscopy shows congested mucosa in the descending colon. Colonic spasm. Polymyositis -Azathioprine 50mg BID -Prednisone 5mg Hx of Left legt DVT -Xarelto 20mg daily HTN -Losartan 100mg PO daily Glaucoma -Bimatoprost 2.5ml op -Brimonidine 1 drop left eye daily Hemorrhoids -Analpram BID Hypokalemia -Supplement as needed -Follow up AM labs Prophylactic measures -Pepcid 20mg PO daily -SCD, on Xarelto PLAN FOR D/C TODAY Case discussed with Dr. Olmedo All management per Dr. Olmedo.
[2018-04-01 08:33] LABS: BASO % 0.5 % (0.0-2.0); EOS # 0.2 K/uL (0.0-0.7); EOS % 2.8 % (0.0-4.0); HEMOGLOBIN 11.9 g/dL (12.0-18.0); LYMPH # 1.9 K/uL (1.0-4.3); LYMPH % 29.8 % (20.0-40.0); MEAN CORPUSCULAR HEMOGLOBIN 30.5 pg (27.0-31.0); MEAN CORPUSCULAR HGB CONC 34.2 g/dL (33.0-37.0); MEAN PLATELET VOLUME 8.2 fL (7.2-11.7); MONO # 0.7 K/uL (0.0-0.8); MONO % 11.4 % (0.0-10.0); NEUT # 3.6 K/uL (1.8-7.0); NEUT % 55.5 % (50.0-75.0); NRBC % 0.1 % (0.0-2.0); RBC 3.92 Mil/uL (4.40-5.90); RED CELL DISTRIBUTION WIDTH 13.8 % (11.5-14.5); WHITE BLOOD COUNT 6.4 K/uL (4.8-10.8)
[2018-04-01 08:50] LABS: ALBUMIN 3.2 g/dL (3.5-5.0); ALT/SGPT 22 U/L (21-72); AST/SGOT 40 U/L (17-59); BLOOD UREA NITROGEN 10 mg/dL (9-20); CALCIUM 8.4 mg/dl (8.6-10.4); GFR AFRICAN-AMERICAN > 60; GFR NON-AFRICAN AMERICAN > 60
[2018-04-01] MEDS: Hydrocortisone 2.5% Rectal Cream(30 gm) PR SCH (10:11)
[2018-04-01] MEDS: Brimonidine 0.2% Opth Sol (5ml) OS SCH (11:07)
[2018-04-01 16:31] VITALS: BP 166/84; PULSE 72; TEMP 98.8; O2SAT 95
--- NOTE | 2018-04-01 22:51 | PN ---
DATE: 04/01/2018 LOCATION: 371, bed A. SUBJECTIVE: This is a 78-year-old male post upper and lower endoscopy, seen and examined in rounds without reported active bleeding but with mild nausea and dyspepsia, tolerating oral intake well. The patient is improving clinically, feeling better, tolerating oral intake without any reported diarrhea, bleeding, nausea, or vomiting. No chest pain or palpitation. The entire chart is reviewed including but not limited to the most recent lab and radiology study results, current and previous medication lists, current and previous medical events, and the pathology report for recently done colonoscopy showed benign colon mucosa, negative for active colitis or dysplasia as per the pathology report. Today, his lab showed low hemoglobin of 11.9, hematocrit 34.9 with normal white blood cells and normal platelet count with creatinine of 0.5, calcium 8.4, albumin 3.2. PHYSICAL EXAMINATION: GENERAL: A 78-year-old male, awake, alert, oriented. VITAL SIGNS: Afebrile with pulse of 70, respiratory rate 20 to 22, blood pressure of 160/76. HEENT: Showed pale dry oral mucoid membrane. Nonicteric sclerae. LUNGS: Few scattered crepitation. Decreased air entry at bases. HEART: Positive S1 and S2. ABDOMEN: Soft with mild generalized tenderness. No mass or organomegaly. No rebound tenderness or guarding. EXTREMITIES: No significant clubbing, cyanosis or edema. NEUROLOGIC: No reported new neurological deficits, sensory or motor. Peripheral pulses are decreased at bases. IMPRESSION: 1. Re-exacerbation of peptic ulcer disease. 2. Abnormal CAT scan of the abdomen and pelvis. 3. Left-sided colitis with evidence of spastic colon by recent colonoscopy. 4. Malnutrition with hypoalbuminemia. 5. Electrolyte imbalance by recent history. 6. Known history of hypertension. 7. Anemia, most likely secondary to gastrointestinal disorders. SUGGESTIONS: 1. Continue current management. 2. Carafate p.o. 3. Antireflux measure. 4. Further recommendation to follow. Estela Medina MD
== END 2018-04-01 17:50 | disposition home or self-care (01) | DRG 386 ==
LOC: C.ER 19:37 → C.9E 03-26 01:26 → C.3T 03-26 02:24
PROVIDERS: ADMIT Internal Medicine Pulmonary Disease; ATTEND Internal Medicine Pulmonary Disease
PROC: 0DBM8ZX Excision of Descending Colon, Via Natural or Artificial Opening Endoscopic, Diagnostic (ICD-10-PCS; principal; 2018-03-27 10:04)
PROC: 0DB58ZX Excision of Esophagus, Via Natural or Artificial Opening Endoscopic, Diagnostic (ICD-10-PCS; 2018-03-31)
DX: K51.50 Left sided colitis without complications (principal); M33.20 Polymyositis, organ involvement unspecified; E87.3 Alkalosis; E46 Unspecified protein-calorie malnutrition; D68.9 Coagulation defect, unspecified; K58.9 Irritable bowel syndrome, unspecified; K27.9 Peptic ulcer, site unspecified, unspecified as acute or chronic, without hemorrhage or perforation; K64.8 Other hemorrhoids; K20.9 Esophagitis, unspecified; E87.6 Hypokalemia; I10 Essential (primary) hypertension; Z79.01 Long term (current) use of anticoagulants; H40.9 Unspecified glaucoma; D64.9 Anemia, unspecified; K44.9 Diaphragmatic hernia without obstruction or gangrene